=== PATIENT | female | born 1960 | race Caucasian/White ===

== ENCOUNTER 2017-09-20 12:43 | Emergency (ER) | payer OTHER, SELFPAY ==
[2017-09-20] VITALS (8 sets, daily range): BP systolic 76–143; BP diastolic 45–81; PULSE 53–78; RESP 12–18; TEMP 36.8; O2SAT 96–100
--- NOTE | 2017-09-20 13:32 | DI.RAD.S_ITS ---
PROCEDURE: XR CHEST 1V INDICATIONS: chest pain TECHNIQUE: One view of the chest was acquired. COMPARISON: [facility], , CHEST 2 VIEW, 01/03/2007, 15:42. FINDINGS: Surgical changes and devices: None. Lungs and pleura: No pleural effusions or pneumothorax. Lungs are clear. Mediastinum: Mediastinal contours appear normal. Heart size is normal. Bones and chest wall: No suspicious bony lesions. Overlying soft tissues appear unremarkable. IMPRESSION: No acute pulmonary process. Dictated by: Kinsey Gallagher M.D. on 09/20/2017 at 13:56 Approved by: Kinsey Gallagher M.D. on 09/20/2017 at 13:56
--- NOTE | 2017-09-20 13:35 | ED_ITS ---
HPI - Chest Pain General Chief Complaint: Chest Pain Stated Complaint: INDIGESTION, TIGHTNESS IN CHEST Time Seen by Provider: 09/20/17 13:13 Source: patient Mode of arrival: ambulatory Limitations: no limitations History of Present Illness HPI narrative: Patient is a 57-year-old female who presents with chest tightness ongoing for the number of weeks. It goes from her neck down to her epigastric area. It has been constant in nature she sometimes has difficulty swallowing, can't really tell if it is a difference between solids and liquids. She sometimes gets short of breath. She says she is becoming increasing fatigued but due to the pain. The pain is just persisted and would just like it checked out. complaint: chest pain Onset (ago): week(s) Duration: constant Pain location: substernal and epigastric Severity: moderate Quality: tightness Related Data Home Medications Medication Instructions Recorded Confirmed naproxen 500 mg NG PRN #0 12/13/10 09/20/17 rizatriptan [Maxalt] 1 tab PO PRN #0 12/13/10 09/20/17 Allergies Allergy/AdvReac Type Severity Reaction Status Date / Time Amoxicillin Allergy Unknown Uncoded 09/20/17 13:11 Penicillin Allergy Unknown Uncoded 09/20/17 13:11 Tetracycline Allergy Unknown RASH Uncoded 09/20/17 13:11 Review of Systems Review of Systems GENERAL: Denies chills, fatigue, malaise, fever, sweats, travel HEENT: Denies sinus pain, ear pain, sore throat, difficulty swallowing, neck pain RESPIRATORY: Denies dyspnea, cough, wheezing, hemoptysis, sputum. CARDIOVASCULAR: See HPI GASTROINTESTINAL: Denies nausea, vomiting, abdominal pain, diarrhea, constipation, melena. : Denies dysuria, frequency, incontinence, hematuria, urinary retention, flank pain. MUSCULOSKELETAL: Denies weakness, joint pain, or bony pain SKIN: No rash, no erythema, no pruritus NEUROLOGIC: Denies weakness, dizziness, headache, numbness, change in speech, confusion PSYCHIATRIC: No concerning psychosocial issues. 12 point review of systems is negative except for those stated above and HPI All systems reviewed & are unremarkable except as noted in HPI and below PFSH Medical History Migraine (Acute) Social History Smoking Status: Never smoker alcohol intake: never substance use type: does not use Comment: No family history of acute coronary syndrome Exam Initial Vital Signs Initial Vital Signs: Vital Signs Temperature 98.2 F 09/20/17 13:06 Pulse Rate 78 09/20/17 13:06 Respiratory Rate 18 09/20/17 13:06 Blood Pressure 143/81 H 09/20/17 13:06 Pulse Oximetry 100 09/20/17 13:06 GENERAL: Well-appearing, well-nourished and in no acute distress. HEENT: Head atraumatic,EOMI, pupils reactive, CARDIOVASCULAR: Regular rate and rhythm without murmurs, rubs or gallops. RESPIRATORY: Breath sounds equal bilaterally, no wheezes rales or rhonchi. ABDOMEN: Soft, nontender. Normoactive bowel sounds all 4 quadrants. No guarding or rebound. EXTREMITIES: Normal range of motion, no clubbing or edema. Neurovascularly intact NEUROLOGICAL: Alert and oriented x4.Normal gait and speech. Cranial nerves II through XII grossly intact. SKIN: Warm, dry, no laceration, no petechiae, no rashes or lesions. Scores HEART Score Heart Score history: Slightly Suspicious Heart Score EKG: Normal Heart Score Age: 45-64 years old Heart Score risk factors: No known risk factors Heart Score troponin: < or = to normal limit Heart Score Total: 1 PERC Score Age greater than or equal to 50 years: Yes Heart rate greater than or equal to 100 bpm: No Room Air O2 Sat less than 95%: No Unilateral leg swelling: No Recent trauma or surgery: No Hemoptysis: No Prior PE or DVT: No Hormone Use: No Total PERC Score: 1 Course Orders Ordered: ED Orders 09/20/17 12:54 EKG-12 Lead Stat 09/20/17 13:10 Complete Blood Count AUTO DIFF Stat Comprehensive Metabolic Panel Stat D Dimer Stat Lipase Stat Troponin with CK Cardiac Panel Stat 09/20/17 13:32 XR chest 1V Stat Discontinued Medications Aspirin (Aspirin Chew) 324 mg PO NOW ONE Stop: 09/20/17 13:33 Last Admin: 09/20/17 13:52 Dose: 324 mg Al Hydrox/Mg Hydrox/Simethicone 20 ml/ Lidocaine HCl 15 ml 0 ml PO NOW ONE Stop: 09/20/17 15:07 Last Admin: 09/20/17 15:26 Dose: 35 ml Sodium Chloride (Normal Saline 0.9%) 1,000 mls @ 1,000 mls/hr IV BOLUS ONE Stop: 09/20/17 15:00 Last Admin: 09/20/17 14:24 Dose: 1,000 mls/hr Nitroglycerin (Nitrostat) 0.4 mg SL NOW ONE Stop: 09/20/17 13:33 Last Admin: 09/20/17 13:51 Dose: 0.4 mg Pantoprazole Sodium (Protonix) 40 mg IV NOW ONE Stop: 09/20/17 13:33 Last Admin: 09/20/17 13:53 Dose: 40 mg Vital Signs - 8 hr 09/20/17 13:06 09/20/17 13:51 09/20/17 14:05 Temperature 98.2 F Pulse Rate 78 65 53 L Respiratory Rate 18 Blood Pressure 143/81 H 125/79 H 76/45 L Blood Pressure [Right Arm] Pulse Oximetry 100 09/20/17 14:24 09/20/17 15:40 09/20/17 15:56 Temperature Pulse Rate 61 65 62 Respiratory Rate 13 14 12 Blood Pressure Blood Pressure [Right Arm] 106/65 100/70 103/72 Pulse Oximetry 100 98 100 09/20/17 16:54 09/20/17 16:56 Temperature Pulse Rate 68 70 Respiratory Rate 13 15 Blood Pressure 112/66 Blood Pressure [Right Arm] 112/66 Pulse Oximetry 100 96 MDM - Chest Pain Lab Data Result diagrams: 09/20/17 13:10 09/20/17 13:10 Lab Results 09/20/17 09/20/17 09/20/17 Range/Units 13:10 13:10 13:10 WBC 6.8 (4.5-11.0) X10^3/uL RBC 4.53 (4.0-5.2) X10^6/uL Hgb 13.7 (12.0-16.0) g/dL Hct 39.7 (36-46) % MCV 87.6 (80-100) fL MCH 30.2 (26-34) PG MCHC 34.5 (30-36) % RDW 12.5 (11.6-14.8) % Plt Count 257 (150-400) X10^3/uL Neut % (Auto) 80.5 H (50-75) % Lymph % (Auto) 15.0 L (25-40) % [place] % (Auto) 4.0 (3-14) % Eos % (Auto) 0.1 L (2-4) % Baso % (Auto) 0.4 (0-2) % Neut # (Auto) 5500 (0397-4056) /uL D-Dimer < 200 (<230) ng/mL Sodium 141 (137-145) mmol/L Potassium 4.3 (3.4-5.1) mmol/L Chloride 104 (98-107) mmol/L Carbon Dioxide 26 (22-32) mmol/L BUN 14 (7-17) mg/dL Creatinine 0.60 (0.52-1.04) mg/dL Estimated GFR > 60.0 (>60) mL/min BUN/Creatinine Ratio 23.3 H (6-22) Glucose 121 H (70-100) mg/dL Calcium 9.9 (8.4-10.2) mg/dL Total Bilirubin 0.8 (0.2-1.3) mg/dL AST 25 (14-36) IU/L ALT 22 (9-52) IU/L Alkaline Phosphatase 87 (38-126) U/L Total Creatine Kinase 47 (30-135) U/L Troponin I < 0.012 (0.01-0.034) ng/mL Total Protein 7.9 (6.3-8.2) g/dL Albumin 4.5 (3.5-5.0) g/dL Globulin 3.4 (1.7-4.1) g/dL Albumin/Globulin Ratio 1.3 (1.0-2.8) Lipase 120 (23-300) U/L Imaging Data Chest x-ray: Radiologist's impression: PROCEDURE: XR CHEST 1V INDICATIONS: chest pain TECHNIQUE: One view of the chest was acquired. COMPARISON: [facility], , CHEST 2 VIEW, 01/03/2007, 15:42. FINDINGS: Surgical changes and devices: None. Lungs and pleura: No pleural effusions or pneumothorax. Lungs are clear. Mediastinum: Mediastinal contours appear normal. Heart size is normal. Bones and chest wall: No suspicious bony lesions. Overlying soft tissues appear unremarkable. IMPRESSION: No acute pulmonary process. Dictated by: Kinsey Gallagher M.D. on 09/20/2017 at 13:56 ECG Data Attestation: I personally reviewed and interpreted this ECG as follows: Prior ECG tracings: not available for review Interpretation: Normal sinus rhythm rate [address] changes, no t wave inversions no priors to compare MDM Narrative Medical decision making narrative: Patient is pressure dropped significantly with nitroglycerin her her rate also dropped. It responded well to IV fluids it did take away her chest pain. Her chest tightness started to come back after the nitro. She was given a GI cocktail. She has had ongoing chest and neck discomfort for about a week troponin and EKG are negative. I did recommend further outpatient workup and to return to the ED if anything worsens. Low perc score and negative D-dimer I do not believe this to be a PE. She may also require an EGD if cardiac workup is negative. Discharge Plan Departure Patient Disposition: Home, Self-Care Clinical Impression: Atypical chest pain Discharge Date/Time: 09/20/17 16:58 Interventions: ED Discharge Assessment Last Done: 09/20/17 16:56 Instructions: DI for Atypical Chest Pain Activity Restrictions/Additional Instructions: *You have been diagnosed with atypical chest pain *What to do: You should still see her primary doctor in regards to further cardiac testing, such as a stress test *Continue to take medications as directed *Follow up with your primary care provider in 2-3 days *Return to ER if you should have change or worsening chest pain or any new, worsening or concerning symptoms Prescriptions: No Action rizatriptan [Maxalt] 10 mg Tablet 1 tab PO PRN Qty: 0 RF: 0 naproxen 500 mg Tablet,Delayed Release (Dr/Ec) 500 mg NG PRN Qty: 0 RF: 0
[2017-09-20 13:42] LABS: Add Manual Diff / Slide Review NO; Basophils Percent Auto 0.4 % (0-2); Eosinophils Percent Auto 0.1 % (2-4); Hematocrit 39.7 % (36-46); Hemoglobin 13.7 g/dL (12.0-16.0); Mean Corpuscular HGB Conc 34.5 % (30-36); Mean Corpuscular Hemoglobin 30.2 PG (26-34); Mean Corpuscular Volume 87.6 fL (80-100); Neutrophils Absolute Auto 5500 /uL (3000-5900); Neutrophils Percent Auto 80.5 % (50-75); Platelet Count 257 X10^3/uL (150-400); Red Blood Cell Count 4.53 X10^6/uL (4.0-5.2); Red Cell Distribution Width 12.5 % (11.6-14.8); White Blood Cell Count 6.8 X10^3/uL (4.5-11.0)
[2017-09-20 13:47] LABS: Alanine Aminotransferase 22 IU/L (9-52); Albumin 4.5 g/dL (3.5-5.0); Albumin Globulin Ratio 1.3 (1.0-2.8); Alkaline Phosphatase 87 U/L (38-126); Aspartate Aminotransferase 25 IU/L (14-36); BUN Creatinine Ratio 23.3 (6-22); Bilirubin Total 0.8 mg/dL (0.2-1.3); Blood Urea Nitrogen 14 mg/dL (7-17); Calcium 9.9 mg/dL (8.4-10.2); Carbon Dioxide 26 mmol/L (22-32); Chloride 104 mmol/L (98-107); Creatine Kinase 47 U/L (30-135); D Dimer < 200 ng/mL (<230); Estimated Glomerular Filt Rate > 60.0 mL/min (>60); Globulin 3.4 g/dL (1.7-4.1); Glucose 121 mg/dL (70-100); HEMOLYSIS < 15 (0-50); Lipase 120 U/L (23-300); Potassium 4.3 mmol/L (3.4-5.1); Sodium 141 mmol/L (137-145); Total Protein 7.9 g/dL (6.3-8.2)
[2017-09-20] MEDS: NITROGLYCERIN 0.4 MG SL TAB SL (13:51)
[2017-09-20] MEDS: ASPIRIN 81 MG TAB 324 MG PO (13:52)
[2017-09-20] MEDS: PANTOPRAZOLE 40 MG VIAL IV (13:53)
[2017-09-20 14:00] LABS: Troponin I < 0.012 ng/mL (0.01-0.034)
[2017-09-20] MEDS: SODIUM CHLORIDE 0.9% 1,000 ML 1000 ML IV (14:24)
[2017-09-20] MEDS: MAG HYDROX/ALUMINUM/SIMETH SUS 20 ML, LIDOCAINE VISCOUS 2% 15 ML PO (15:26)
== END 2017-09-20 16:58 | disposition home or self-care (01) ==
PROVIDERS: Emergency Provider Emergency Medicine; Family Provider Family Medicine; PCP Family Medicine
DX: R07.89 Other chest pain (principal)
CPT/HCPCS: 36591; 71045; 80053; 82550; 82553; 83690; 84484; 85025; 85379; 93005; 96361; 96374; 99283; 99285; C9113

== ENCOUNTER 2017-10-25 06:46 | Day surgery (SDC) | payer OTHER, SELFPAY ==
--- NOTE | 2017-10-25 | PATH_ITS ---
[facility] Accession Number: [id number] . 01 Material submitted: . BIOPSY EG JUNCTION . 02 Diagnosis: Gastroesophageal Junction, Biopsy: Squamocolumnar junctional mucosa with no diagnostic abnormality. Negative for specialized intestinal metaplasia, dysplasia or malignancy. MRV/10/28/2017 . 02 Electronically signed: . Javed Romero MD, PhD, Pathologist NPI- [id number] . 01 Gross description: . Received in one formalin-filled container labeled with the patient's name and labeled EG junction, are 0.1-0.2 cm portions of tissue, entirely submitted in cassette A. ([id number]) /FRR . 02 Pathologist provided ICD-10: K21.9, R10.13 . 02 CPT . 237836 Performed at: 01 [facility] [address] [id number] MD Chay Lay MD Phone: [phone] Performed at: 02 [facility] [id number] [place] [id number] MD Isrrael Scales MD Phone: [phone]
[2017-10-25 07:11] VITALS: BP 110/59; PULSE 62; RESP 15; TEMP 36; O2SAT 98; BMI 24.2
[2017-10-25] MEDS: SODIUM CHLORIDE 0.9% 1,000 ML 200 ML IV (07:20)
--- NOTE | 2017-10-25 08:08 | PM.PREOP ---
Pre-operative Note Interval Note Pre-op Check: Yes History & Physical Reviewed by Physician and Yes Exam Performed Changes: No ASA Class (for procedural sedation): I
[2017-10-25] MEDS: TETRACAINE/BENZOCAINE/BUTAMBEN (CETACAINE) BOTTLE 1 SPRAY TOP (08:35)
[2017-10-25] MEDS: MIDAZOLAM 5 MG/5 ML VIAL IV (08:37)
[2017-10-25] MEDS: fentaNYL 250 MCG/5 ML INJ IV (08:38)
--- NOTE | 2017-10-25 08:38 | PM.OP.ENDO ---
Operative Date/Time/Diagnoses Date of procedure: 10/25/17 Time of procedure: 08:38 Post-op diagnosis: same Procedure & Clinicians Study performed: EGD with cold biopsy Same procedure as scheduled: Yes Indications: Reflux. Atypical chest pain. Surgeon: Mg Cho Procedure Notes SCOAP/Timeout: Performed Procedure in detail: The patient had topical anesthetic applied to oropharynx. She was placed in left lateral decubitus position and underwent IV sedation directed by the surgeon consisting of fentanyl and Versed. A bite block was inserted and the scope was advanced through it into the esophagus. The cord structures and surrounding tissue were noted to be normal. The esophagus was unremarkable. GE junction was noted at 38 cm from the incisors. There was no evidence of a hiatal hernia. The stomach insufflated well. There were no lesions seen in the body, antrum or at the incisura. The pyloric channel was not inflamed and normally patent. The duodenum was unremarkable to the 4th part. The scope was brought back into the stomach and retroflexed. The proximal stomach was unremarkable. There was no evidence of a hiatal hernia from below.. The scope was straightened and brought out to the GE junction where I performed biopsies to clarify whether there was a subclinical problem. The scope was then brought out through the esophagus. No lesions were seen. I once again examined the cord structures which were normal in appearance, and appeared to be normally mobile. The scope was removed and the patient tolerated the procedure well. Scope withdrawal time: Not applicable Sedation minutes: 9 Findings: other findings (Normal examination) Specimen(s): other (GE junction) Complications: none Plan for aftercare: Follow-up with your primary care physician Follow up: as needed Disposition: PACU
[2017-10-25 08:43] VITALS: BP 125/82; PULSE 66; RESP 16; TEMP 36.4; O2SAT 91; O2SAT 95
[2017-10-25 08:47] VITALS: BP 114/78; PULSE 61; O2SAT 95
[2017-10-25 08:52] VITALS: BP 120/75; PULSE 59; O2SAT 97
[2017-10-25 08:57] VITALS: O2SAT 96
[2017-10-25 09:10] VITALS: BP 128/78; PULSE 64; RESP 14; TEMP 36.1; O2SAT 97
== END 2017-10-25 09:19 | disposition home or self-care (01) ==
PROVIDERS: Family Provider Family Medicine; PCP Family Medicine; Visit Provider Specialist
PROC: 0DJ08ZZ Inspection of Upper Intestinal Tract, Via Natural or Artificial Opening Endoscopic (ICD-10-PCS; CPT 43235; principal; 2017-10-25 07:45)
DX: K21.9 Gastro-esophageal reflux disease without esophagitis (principal); R13.10 Dysphagia, unspecified; R07.89 Other chest pain
CPT/HCPCS: 43239; 99152; J2250; J3010

== ENCOUNTER → 2017-10-30 11:07 | Outpatient (CLI) | payer OTHER, SELFPAY ==
--- NOTE | 2017-10-30 | DI.MG.S_ITS ---
BILATERAL DIGITAL SCREENING MAMMOGRAM 3D/2D WITH CAD: 10/30/2017 CLINICAL: Routine screening. Family history of breast cancer. Comparison is made to exams dated: 09/27/2016 mammogram, 04/29/2015 mammogram, and 04/25/2015 mammogram - [facility]. The tissue of both breasts is heterogeneously dense. This may lower the sensitivity of mammography. Current study was also evaluated with a Computer Aided Detection (CAD) system. No significant masses, calcifications, or other findings are seen in either breast. There has been no significant interval change. IMPRESSION: NEGATIVE There is no mammographic evidence of malignancy. A 1 year screening mammogram is recommended. This exam was interpreted at Station ID: [id number]. NOTE: For mammograms, a report in lay terms will be sent to the patient. Approximately 15% of breast malignancies will not be visualized mammographically. In the management of a palpable breast mass, a negative mammogram must not discourage biopsy of a clinically suspicious lesion. Electronically Signed By: Lainey gomez/raoul:10/30/2017 11:53:31 letter sent: Normal Exam ACR BI-RADS Category 1: Negative 3341F
== END ==
PROVIDERS: Family Provider Family Medicine; PCP Family Medicine; Visit Provider Family Medicine
DX: Z12.31 Encounter for screening mammogram for malignant neoplasm of breast (principal); Z80.3 Family history of malignant neoplasm of breast
CPT/HCPCS: 77063; 77067

== ENCOUNTER → 2018-11-06 09:46 | Outpatient (CLI) | payer OTHER, SELFPAY ==
--- NOTE | 2018-11-06 | DI.MG.S_ITS ---
BILATERAL DIGITAL SCREENING MAMMOGRAM 3D/2D WITH CAD: 11/06/2018 CLINICAL: Routine screening. Family history of breast cancer. Comparison is made to exams dated: 10/30/2017 mammogram, 09/27/2016 mammogram, and 04/29/2015 mammogram - [facility]. The tissue of both breasts is heterogeneously dense. This may lower the sensitivity of mammography. Current study was also evaluated with a Computer Aided Detection (CAD) system. No significant masses, calcifications, or other findings are seen in either breast. There has been no significant interval change. IMPRESSION: NEGATIVE There is no mammographic evidence of malignancy. A 1 year screening mammogram is recommended. This exam was interpreted at Station ID: [id number]. NOTE: For mammograms, a report in lay terms will be sent to the patient. Approximately 15% of breast malignancies will not be visualized mammographically. In the management of a palpable breast mass, a negative mammogram must not discourage biopsy of a clinically suspicious lesion. Electronically Signed By: Vaughn cisse/raoul:11/06/2018 10:32:24 letter sent: Normal Exam ACR BI-RADS Category 1: Negative [id number]
== END ==
PROVIDERS: PCP Family Medicine; Visit Provider Family Medicine
DX: Z12.31 Encounter for screening mammogram for malignant neoplasm of breast (principal); Z80.3 Family history of malignant neoplasm of breast
CPT/HCPCS: 77063; 77067

== ENCOUNTER 2019-08-24 15:58 | Emergency (ER) | payer OTHER, SELFPAY ==
[2019-08-24 16:09] VITALS: BP 156/89; PULSE 62; RESP 16; TEMP 36; O2SAT 99
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
--- NOTE | 2019-08-24 16:18 | PC.NURSE ---
placed patient in sling for comfort in triage. Ice pack in place
[2019-08-24 17:14] VITALS: PULSE 88
--- NOTE | 2019-08-24 17:15 | PC.NURSE ---
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
[2019-08-24] MEDS: ONDANSETRON 4 MG ODT PO (17:20)
[2019-08-24] MEDS: HYDROCODONE/ACET 5/325 TABLET 2 TAB PO (17:20)
[2019-08-24 18:12] VITALS: BP 129/71; PULSE 78; RESP 16; O2SAT 99
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
== END 2019-08-24 18:24 | disposition home or self-care (01) ==
PROVIDERS: Emergency Provider Emergency Medicine; PCP Family Medicine
DX: S42.021A Displaced fracture of shaft of right clavicle, initial encounter for closed fracture (principal); W19.XXXA Unspecified fall, initial encounter
CPT/HCPCS: 73000; 73030; 99283; 99284

== ENCOUNTER → 2019-08-26 10:35 | Outpatient (CLI) | payer OTHER, SELFPAY ==
[2019-08-26 12:31] LABS: Add Manual Diff / Slide Review NO; Basophils Absolute Auto 0 /uL (0-100); Basophils Percent Auto 0.4 % (0-2); Eosinophils Absolute Auto 0 /uL (0-450); Eosinophils Percent Auto 0.6 % (2-4); Hematocrit 36.6 % (36-46); Hemoglobin 12.4 g/dL (12.0-16.0); Lymphocytes Absolute Auto 1200 /uL (1100-4500); Lymphocytes Percent Auto 14.9 % (25-40); Mean Corpuscular Hemoglobin 30.3 PG (26-34); Mean Corpuscular Volume 89.2 fL (80-100); Monocytes Absolute Auto 500 /uL (0-900); Monocytes Percent Auto 6.8 % (3-14); Neutrophils Absolute Auto 6100 /uL (1500-7000); Neutrophils Percent Auto 77.3 % (50-75); Platelet Count 228 X10^3/uL (150-400); Red Cell Distribution Width 12.8 % (11.6-14.8); White Blood Cell Count 7.9 X10^3/uL (4.5-11.0)
[2019-08-27 07:43] LABS: COVID19 Sendout Not Detected (Not Detect)
== END ==
PROVIDERS: Registered Nurse; PCP Family Medicine; Referring Provider Orthopaedic Surgery; Visit Provider Orthopaedic Surgery
DX: Z01.812 Encounter for preprocedural laboratory examination (principal)
CPT/HCPCS: 36415; 85025; 87635

== ENCOUNTER → 2019-12-15 14:06 | Outpatient (CLI) | payer OTHER, SELFPAY ==
--- NOTE | 2019-12-15 | DI.CT.S_ITS ---
PROCEDURE: CT UE RT WO CON INDICATIONS: NON DISPLACED right clavicle TECHNIQUE: Noncontrast 1-1.5 mm thick sections acquired from the acromioclavicular joint to the inferior scapula, with coronal and sagittal reformatting. COMPARISON: [facility] [place], CR, XR CLAVICLE RIGHT, 09/07/2019, 8:39. [facility] [place], CR, XR CLAVICLE RIGHT, 12/09/2019, 11:10. FINDINGS: Image quality: Excellent. Bones: Postsurgical changes are seen from fixation a midshaft clavicular fracture with metallic plate and screw construct. Lucency is seen surrounding the medial 3 screws, some of which have partially backed out with separation of the medial metallic plate from the clavicular shaft by up to 4 mm. The fracture line remains lucent without significant osseous bridging. Warrens superior angulation of the fracture is noted.. There is a healing fracture of the lateral margin of the plate with superior displacement of the distal clavicular fragment with partial osseous bridging and mild overgrowth around the lateral plate margin. The included ribs, the scapula, and the proximal humerus are intact. Soft tissues: No significant glenohumeral effusion. No soft tissue mass is seen. The articular cartilages, ligaments, and tendons are not well evaluated with CT. IMPRESSION: Postsurgical changes from fixation open reduction and internal fixation of a mid clavicular shaft fracture with loosening and backing out of the medial screws resulting in separation of the medial metallic plate end from the clavicle by up to 4 mm. The fracture line remains lucent with mild apex superior angulation. An additional healing fracture is seen at the distal clavicular shaft at the lateral plate margin with superior displacement of the lateral fragment and partial osseous bridging. Dictated by: Yoni Juarez M.D. on 12/15/2019 at 14:51 Approved by: Yoni Juarez M.D. on 12/15/2019 at 15:07
== END ==
PROVIDERS: PCP Family Medicine; Referring Provider Orthopaedic Surgery; Visit Provider Orthopaedic Surgery
DX: S42.024D Nondisplaced fracture of shaft of right clavicle, subsequent encounter for fracture with routine healing (principal); X58.XXXD Exposure to other specified factors, subsequent encounter
CPT/HCPCS: 73200

== ENCOUNTER → 2020-06-01 14:08 | Outpatient (CLI) | payer OTHER, SELFPAY ==
[2020-06-01] MEDS: COVID-19 VACC, Ad26(JANSSEN)/PF 0.5 ML IM (14:20)
== END ==
PROVIDERS: PCP Family Medicine; Visit Provider Internal Medicine
DX: Z23 Encounter for immunization (principal)
CPT/HCPCS: 0031A; 91303

== ENCOUNTER → 2020-07-18 16:38 | Outpatient (CLI) | payer OTHER, SELFPAY ==
--- NOTE | 2020-07-18 | DI.CT.S_ITS ---
PROCEDURE: CT KIDNEY URETER BLADDER (KUB) INDICATIONS: LOWER ABD PAIN UNSPECIFIED TECHNIQUE: Noncontrast 5 mm thick sections acquired from the diaphragms to the symphysis. 5 mm thick coronal and sagittal reformats were then performed. For radiation dose reduction, the following was used: automated exposure control, adjustment of mA and/or kV according to patient size. COMPARISON: None. FINDINGS: Image quality: Limited by absence of both oral and intravenous contrast.. Lung bases: Lung bases are clear. Heart size is normal. Urinary system: Both kidneys are normal in size. No kidney stones. No hydronephrosis or perinephric fat stranding. Both ureters appear non-dilated throughout their expected courses. Bladder wall thickness is normal; no calcified bladder stones. Other solid organs: Liver is normal in size. Gallbladder is contracted . Pancreas is normal in contours. Spleen is normal in size. No adrenal nodules. Peritoneum and bowel: Unenhanced bowel loops demonstrate normal wall thickness and caliber. No free fluid or air. Nodes and vessels: No retroperitoneal or mesenteric adenopathy by size criteria. Aorta and inferior vena cava are normal in caliber. Abdominal wall: No ventral hernias. Pelvis: No free pelvic fluid. No inguinal hernias or adenopathy. Scattered pelvic phleboliths, no definite distal ureteral stone. Bones: No suspicious bony lesions. No vertebral body compression fractures. IMPRESSION: The absence of both oral and intravenous contrast does reduce ability of this study to detect solid or hollow organ abnormality. A urinary tract stone is not seen. There are several scattered pelvic phleboliths over the lower pelvis. Source of current reported lower abdominal pain is not identified. Dictated by: Reagan Quarles M.D. on 07/19/2020 at 12:39 Approved by: Reagan Quarles M.D. on 07/19/2020 at 12:42
== END ==
PROVIDERS: PCP Family Medicine; Referring Provider Nurse Practitioner Family; Visit Provider Nurse Practitioner Family
DX: R10.30 Lower abdominal pain, unspecified (principal)
CPT/HCPCS: 74176

== ENCOUNTER → 2020-08-10 14:35 | Outpatient (CLI) | payer OTHER, SELFPAY ==
--- NOTE | 2020-08-10 | DI.US.S_ITS ---
PROCEDURE: US PELVIC COMPLETE INDICATIONS: PELVIC AND PERINEAL PAIN TECHNIQUE: Real-time scanning was performed of the pelvic organs, with image documentation. Additional endovaginal scanning was necessary due to incomplete visualization of the adnexal and endometrial structures by transabdominal scanning. COMPARISON: [facility], CT, CT KIDNEY URETER BLADDER (KUB), 07/18/2020, 17:05. [facility], US, PELVIC COMPLETE, 12/01/2007, 15:56. FINDINGS: Uterus: Uterus is normal in size at 5.1 x 4.1 x 2.1 cm. The endometrium measures 2 mm in combined thickness. Ovaries: The right ovary measures 1.9 x 1.4 x 1.2 cm and demonstrates an unremarkable sonographic appearance. The left ovary is not seen. No adnexal masses are seen on either side. Other: No pathologic free abdominal or pelvic fluid. The prevoid bladder volume is 416 cc. The postvoid bladder volume is 0 cc. IMPRESSION: Unremarkable pelvic ultrasound. Left ovary not seen. No postvoid residual. Dictated by: Poncho Puentes M.D. on 08/11/2020 at 10:05 Approved by: Poncho Puentes M.D. on 08/11/2020 at 10:17
== END ==
PROVIDERS: PCP Family Medicine; Referring Provider Family Medicine; Visit Provider Family Medicine
DX: R10.2 Pelvic and perineal pain (principal); M81.0 Age-related osteoporosis without current pathological fracture; Z78.0 Asymptomatic menopausal state; Z82.62 Family history of osteoporosis
CPT/HCPCS: 76830; 76856; 77080

== ENCOUNTER → 2020-11-08 10:10 | Outpatient (CLI) | payer OTHER, SELFPAY ==
--- NOTE | 2020-11-08 | DI.MG.S_ITS ---
BILATERAL DIGITAL SCREENING MAMMOGRAM 3D/2D WITH CAD: 11/08/2020 CLINICAL: Routine screening. Family history of breast cancer. Comparison is made to exams dated: 11/06/2018 mammogram, 10/30/2017 mammogram, 09/27/2016 mammogram, and 04/25/2015 mammogram - [facility]. The tissue of both breasts is heterogeneously dense. This may lower the sensitivity of mammography. Current study was also evaluated with a Computer Aided Detection (CAD) system. No significant masses, calcifications, or other findings are seen in either breast. There has been no significant interval change. IMPRESSION: NEGATIVE There is no mammographic evidence of malignancy. A 1 year screening mammogram is recommended. This exam was interpreted at Station ID: [id number]. NOTE: For mammograms, a report in lay terms will be sent to the patient. Approximately 15% of breast malignancies will not be visualized mammographically. In the management of a palpable breast mass, a negative mammogram must not discourage biopsy of a clinically suspicious lesion. Electronically Signed By: Angelito mcnair/raoul:11/08/2020 10:48:46 letter sent: Normal Exam ACR BI-RADS Category 1: Negative [id number]
== END ==
PROVIDERS: PCP Family Medicine; Referring Provider Family Medicine; Visit Provider Family Medicine
DX: Z12.31 Encounter for screening mammogram for malignant neoplasm of breast (principal); Z80.3 Family history of malignant neoplasm of breast
CPT/HCPCS: 77063; 77067

== ENCOUNTER → 2021-12-23 09:14 | Outpatient (CLI) | payer OTHER, SELFPAY ==
[2021-12-23 10:10] LABS: Add Manual Diff / Slide Review NO; Basophils Absolute Auto 0 /uL (0-100); Basophils Percent Auto 0.8 % (0-2); Eosinophils Absolute Auto 100 /uL (0-450); Eosinophils Percent Auto 2.3 % (2-4); Hematocrit 37.5 % (36-46); Hemoglobin 12.7 g/dL (12.0-16.0); Lymphocytes Absolute Auto 1500 /uL (1100-4500); Lymphocytes Percent Auto 29.9 % (25-40); Mean Corpuscular HGB Conc 33.8 % (30-36); Mean Corpuscular Hemoglobin 29.9 PG (26-34); Mean Corpuscular Volume 88.5 fL (80-100); Monocytes Absolute Auto 400 /uL (0-900); Monocytes Percent Auto 8.8 % (3-14); Neutrophils Absolute Auto 3000 /uL (1500-7000); Neutrophils Percent Auto 58.2 % (50-75); Platelet Count 244 X10^3/uL (150-400); Red Blood Cell Count 4.24 X10^6/uL (4.0-5.2); Red Cell Distribution Width 12.4 % (11.6-14.8); White Blood Cell Count 5.1 X10^3/uL (4.5-11.0)
[2021-12-23 10:38] LABS: Alanine Aminotransferase 18 IU/L (<35); Albumin 4.4 g/dL (3.5-5.0); Albumin Globulin Ratio 1.3 (1.0-2.8); Alkaline Phosphatase 48 U/L (38-126); Aspartate Aminotransferase 28 IU/L (14-36); BUN Creatinine Ratio 24.7 (6-22); Bilirubin Total 0.6 mg/dL (0.2-1.3); Blood Urea Nitrogen 18 mg/dL (7-17); Carbon Dioxide 30 mmol/L (22-32); Chloride 104 mmol/L (98-107); Cholesterol 249 mg/dL (140-199); Estimated Glomerular Filt Rate > 60 mL/min (>60); Globulin 3.5 g/dL (1.7-4.1); Glucose 108 mg/dL (80-110); HDL Cholesterol 73 mg/dL (40-60); HEMOLYSIS < 15 (0-50); LDL Cholesterol Calculated 149 mg/dL (<100); Potassium 4.5 mmol/L (3.4-5.1); Sodium 140 mmol/L (137-145); Total Protein 7.9 g/dL (6.3-8.2); Triglycerides 136 mg/dL (35-150)
[2021-12-25 18:29] LABS: Hep C Virus Ab w/Reflex Quant NEGATIVE s/c (NEGATIVE)
== END ==
PROVIDERS: PCP Family Medicine; Referring Provider Family Medicine; Visit Provider Family Medicine
DX: Z00.00 Encounter for general adult medical examination without abnormal findings (principal); Z78.9 Other specified health status
CPT/HCPCS: 36415; 80053; 80061; 84443; 85025; 86803

== ENCOUNTER → 2022-01-16 14:39 | Outpatient (CLI) | payer OTHER, SELFPAY ==
--- NOTE | 2022-01-16 14:40 | DI.MG.S_ITS ---
BILATERAL DIGITAL SCREENING MAMMOGRAM 3D/2D WITH CAD: 01/16/2022 CLINICAL: Routine screening. Family history of breast cancer. Comparison is made to exams dated: 11/08/2020 mammogram, 11/06/2018 mammogram, and 10/30/2017 mammogram - [facility]. Both breasts are heterogeneously dense, which may obscure small masses (category c / 51-75% glandular tissue). Current study was also evaluated with a Computer Aided Detection (CAD) system. No significant masses, calcifications, or other findings are seen in either breast. There has been no significant interval change. IMPRESSION: NEGATIVE There is no mammographic evidence of malignancy. A 1 year screening mammogram is recommended. This exam was interpreted at Station ID: [id number]. NOTE: For mammograms, a report in lay terms will be sent to the patient. Approximately 15% of breast malignancies will not be visualized mammographically. In the management of a palpable breast mass, a negative mammogram must not discourage biopsy of a clinically suspicious lesion. Electronically Signed By: Tone christensen/raoul:01/16/2022 15:43:26 letter sent: Normal Exam ACR BI-RADS Category 1: Negative [id number]
== END ==
PROVIDERS: PCP Family Medicine; Referring Provider Family Medicine; Visit Provider Family Medicine
DX: Z13.820 Encounter for screening for osteoporosis (principal); Z12.31 Encounter for screening mammogram for malignant neoplasm of breast; M81.0 Age-related osteoporosis without current pathological fracture; Z80.3 Family history of malignant neoplasm of breast; Z78.0 Asymptomatic menopausal state; Z79.890 Hormone replacement therapy
CPT/HCPCS: 77063; 77067; 77080

== ENCOUNTER → 2022-06-16 07:54 | Outpatient (CLI) | payer OTHER, SELFPAY ==
[2022-06-16 09:12] LABS: Alanine Aminotransferase 25 IU/L (<35); Albumin 4.2 g/dL (3.5-5.0); Albumin Globulin Ratio 1.4 (1.0-2.8); Alkaline Phosphatase 53 U/L (38-126); Aspartate Aminotransferase 32 IU/L (14-36); Bilirubin Total 0.7 mg/dL (0.2-1.3); Blood Urea Nitrogen 15 mg/dL (7-17); Calcium 9.2 mg/dL (8.4-10.2); Carbon Dioxide 31 mmol/L (22-32); Chloride 101 mmol/L (98-107); Cholesterol 224 mg/dL (140-199); Estimated Glomerular Filt Rate > 60 mL/min (>60); Globulin 2.9 g/dL (1.7-4.1); Glucose 105 mg/dL (80-110); HDL Cholesterol 83 mg/dL (40-60); HEMOLYSIS < 15 (0-50); LDL Cholesterol Calculated 127 mg/dL (<100); Potassium 4.6 mmol/L (3.4-5.1); Sodium 138 mmol/L (137-145); Total Protein 7.1 g/dL (6.3-8.2); Triglycerides 71 mg/dL (35-150)
== END ==
PROVIDERS: PCP Family Medicine; Referring Provider Family Medicine; Visit Provider Family Medicine
DX: E78.5 Hyperlipidemia, unspecified (principal)
CPT/HCPCS: 36415; 80053; 80061

== ENCOUNTER → 2022-06-21 16:08 | Outpatient (CLI) | payer OTHER, SELFPAY ==
[2022-06-21 16:52] LABS: Add Manual Diff / Slide Review NO; Basophils Absolute Auto 100 /uL (0-100); Basophils Percent Auto 0.9 % (0-2); Eosinophils Absolute Auto 100 /uL (0-450); Hematocrit 34.4 % (36-46); Hemoglobin 11.7 g/dL (12.0-16.0); Lymphocytes Absolute Auto 1700 /uL (1100-4500); Lymphocytes Percent Auto 29.9 % (25-40); Mean Corpuscular HGB Conc 34.1 % (30-36); Mean Corpuscular Hemoglobin 29.9 PG (26-34); Mean Corpuscular Volume 87.6 fL (80-100); Monocytes Absolute Auto 600 /uL (0-900); Monocytes Percent Auto 10.1 % (3-14); Neutrophils Absolute Auto 3300 /uL (1500-7000); Neutrophils Percent Auto 57.1 % (50-75); Platelet Count 242 X10^3/uL (150-400); Red Blood Cell Count 3.92 X10^6/uL (4.0-5.2); Red Cell Distribution Width 12.8 % (11.6-14.8); White Blood Cell Count 5.8 X10^3/uL (4.5-11.0)
[2022-06-21 17:16] LABS: Erythrocyte Sedimentation Rate 16 MM/HR (0-20)
[2022-06-21 17:42] LABS: C-Reactive Protein Quant 0.6 mg/dL (<1.0)
[2022-06-21 17:51] LABS: Rheumatoid Factor < 8.6 IU/mL (<12.0)
[2022-06-21 18:03] LABS: TSH w/ Reflex to FT4 0.53 uIU/mL (0.47-4.68)
[2022-06-23 08:10] LABS: Parathyroid Hormone Int 37 pg/mL (15-65)
[2022-06-26 18:07] LABS: ANA Screen, IFA Negative (.)
== END ==
PROVIDERS: PCP Family Medicine; Referring Provider Family Medicine; Visit Provider Family Medicine
DX: M25.50 Pain in unspecified joint (principal)
CPT/HCPCS: 36415; 82306; 83970; 84443; 85025; 85651; 86038; 86140; 86430

== ENCOUNTER → 2022-07-21 09:39 | Outpatient (CLI) | payer OTHER, SELFPAY ==
[2022-07-21 10:55] LABS: Add Manual Diff / Slide Review NO; Basophils Absolute Auto 0 /uL (0-100); Basophils Percent Auto 0.5 % (0-2); Eosinophils Absolute Auto 100 /uL (0-450); Eosinophils Percent Auto 1.6 % (2-4); Hematocrit 36.4 % (36-46); Hemoglobin 12.3 g/dL (12.0-16.0); Lymphocytes Absolute Auto 1500 /uL (1100-4500); Lymphocytes Percent Auto 20.7 % (25-40); Mean Corpuscular HGB Conc 33.8 % (30-36); Mean Corpuscular Hemoglobin 29.9 PG (26-34); Mean Corpuscular Volume 88.3 fL (80-100); Monocytes Absolute Auto 600 /uL (0-900); Neutrophils Absolute Auto 4900 /uL (1500-7000); Neutrophils Percent Auto 68.2 % (50-75); Platelet Count 242 X10^3/uL (150-400); Red Blood Cell Count 4.12 X10^6/uL (4.0-5.2); Red Cell Distribution Width 12.5 % (11.6-14.8); White Blood Cell Count 7.1 X10^3/uL (4.5-11.0)
[2022-07-21 10:56] LABS: Iron 99 ug/dL (37-170)
[2022-07-21 11:06] LABS: Total Iron Binding Capacity 279 ug/dL (265-497)
[2022-07-21 11:32] LABS: Ferritin 84 ng/mL (11-264)
[2022-07-21 12:03] LABS: Vitamin B12 647 pg/mL (239-931)
== END ==
PROVIDERS: PCP Family Medicine; Referring Provider Family Medicine; Visit Provider Family Medicine
DX: D64.9 Anemia, unspecified (principal)
CPT/HCPCS: 36415; 82607; 82728; 82746; 83540; 83550; 85025

== ENCOUNTER → 2023-01-19 09:11 | Outpatient (CLI) | payer OTHER, SELFPAY ==
--- NOTE | 2023-01-19 | DI.MG.S_ITS ---
BILATERAL DIGITAL SCREENING MAMMOGRAM 3D/2D WITH CAD: 01/19/2023 CLINICAL: Routine screening. Family history of breast cancer. Comparison is made to exams dated: 01/16/2022 mammogram, 11/08/2020 mammogram, 11/06/2018 mammogram, and 10/30/2017 mammogram - [facility]. Both breasts are heterogeneously dense, which may obscure small masses (category c / 51-75% glandular tissue). Current study was also evaluated with a Computer Aided Detection (CAD) system. No significant masses, calcifications, or other findings are seen in either breast. There has been no significant interval change. IMPRESSION: NEGATIVE There is no mammographic evidence of malignancy. A 1 year screening mammogram is recommended. Based on the Tyrer Cuzick model (a risk assessment model) the patient's lifetime risk is 15.6% and her 10 year risk is 6.9%. According to the ACR, ACS, and NCCN guidelines, an annual breast MRI exam along with mammogram is recommended if the patient's lifetime risk is 20% or greater. This exam was interpreted at Station ID: [id number]. NOTE: For mammograms, a report in lay terms will be sent to the patient. Approximately 15% of breast malignancies will not be visualized mammographically. In the management of a palpable breast mass, a negative mammogram must not discourage biopsy of a clinically suspicious lesion. Electronically Signed By: Angelito mcnair/raoul:01/19/2023 10:05:25 letter sent: Normal Exam ACR BI-RADS Category 1: Negative [id number]
== END ==
PROVIDERS: PCP Family Medicine; Referring Provider Family Medicine; Visit Provider Family Medicine
DX: Z12.31 Encounter for screening mammogram for malignant neoplasm of breast (principal); Z80.3 Family history of malignant neoplasm of breast
CPT/HCPCS: 77063; 77067

== ENCOUNTER → 2023-04-11 08:35 | Outpatient (CLI) | payer OTHER, SELFPAY ==
[2023-04-11 09:24] LABS: Add Manual Diff / Slide Review NO; Basophils Absolute Auto 0 /uL (0-100); Basophils Percent Auto 0.8 % (0-2); Eosinophils Absolute Auto 100 /uL (0-450); Hematocrit 37.4 % (36-46); Hemoglobin 12.5 g/dL (12.0-16.0); Lymphocytes Absolute Auto 1500 /uL (1100-4500); Lymphocytes Percent Auto 28.7 % (25-40); Mean Corpuscular HGB Conc 33.6 % (30-36); Mean Corpuscular Hemoglobin 29.4 PG (26-34); Mean Corpuscular Volume 87.5 fL (80-100); Monocytes Absolute Auto 400 /uL (0-900); Monocytes Percent Auto 8.1 % (3-14); Neutrophils Absolute Auto 3200 /uL (1500-7000); Neutrophils Percent Auto 60.4 % (50-75); Platelet Count 251 X10^3/uL (150-400); Red Blood Cell Count 4.27 X10^6/uL (4.0-5.2); Red Cell Distribution Width 12.4 % (11.6-14.8); White Blood Cell Count 5.2 X10^3/uL (4.5-11.0)
[2023-04-11 09:26] LABS: Alanine Aminotransferase 17 IU/L (<35); Albumin 4.2 g/dL (3.5-5.0); Albumin Globulin Ratio 1.4 (1.0-2.8); Alkaline Phosphatase 44 U/L (38-126); Aspartate Aminotransferase 28 IU/L (14-36); BUN Creatinine Ratio 19.4 (6-22); Bilirubin Total 0.9 mg/dL (0.2-1.3); Blood Urea Nitrogen 13 mg/dL (7-17); Calcium 9.6 mg/dL (8.4-10.2); Carbon Dioxide 29 mmol/L (22-32); Chloride 100 mmol/L (98-107); Cholesterol 227 mg/dL (140-199); Estimated Glomerular Filt Rate > 60 mL/min (>60); Globulin 3.1 g/dL (1.7-4.1); Glucose 101 mg/dL (80-110); HDL Cholesterol 74 mg/dL (40-60); HEMOLYSIS < 15 (0-50); LDL Cholesterol Calculated 133 mg/dL (<100); Potassium 4.5 mmol/L (3.4-5.1); Sodium 137 mmol/L (137-145); Total Protein 7.3 g/dL (6.3-8.2); Triglycerides 102 mg/dL (35-150)
[2023-04-11 09:43] LABS: Vitamin D 25 Hydroxy (D3) 34.6 ng/mL (30.0-100.0)
[2023-04-11 09:59] LABS: Thyroid Stimulating Hormone 0.981 uIU/mL (0.47-4.68)
== END ==
PROVIDERS: PCP Family Medicine; Referring Provider Family Medicine; Visit Provider Family Medicine
DX: Z00.00 Encounter for general adult medical examination without abnormal findings (principal); E55.9 Vitamin D deficiency, unspecified; E78.5 Hyperlipidemia, unspecified; D64.9 Anemia, unspecified
CPT/HCPCS: 36415; 80053; 80061; 82306; 84443; 85025

== ENCOUNTER → 2023-05-13 14:19 | Outpatient (CLI) | payer OTHER, SELFPAY ==
[2023-05-13 15:10] LABS: Influenza A - CEPHEID Flu A POSITIVE (NEGATIVE); Influenza B - CEPHEID Flu B NEGATIVE (NEGATIVE); Respiratory Syncytial Virus Negative (Negative)
[2023-05-13 15:25] LABS: COVID-19 CEPHEID 4-PLEX PCR Negative (Negative)
== END ==
PROVIDERS: PCP Family Medicine; Visit Provider Physician Assistant Surgical
DX: R05.1 Acute cough (principal)
CPT/HCPCS: 0241U

== ENCOUNTER → 2023-05-13 14:44 | Outpatient (CLI) | payer OTHER, SELFPAY ==
--- NOTE | 2023-05-13 14:48 | DI.RAD.S_ITS ---
PROCEDURE: XR CHEST 2V INDICATIONS: Dyspnea, cough TECHNIQUE: 2 views of the chest were acquired. COMPARISON: [facility], , XR CHEST 1V, 09/20/2017, 13:40. [facility], , CHEST 2 VIEW, 01/03/2007, 15:42. FINDINGS: Surgical changes and devices: None. Lungs and pleura: Lungs are clear. No pleural effusions or pneumothorax. Mediastinum: Mediastinal contours are normal. Heart size is normal. Bones and chest wall: No suspicious bony abnormalities. Soft tissues appear unremarkable. IMPRESSION: No acute cardiopulmonary abnormality is seen. Dictated by: Marcus Gann M.D. on 05/13/2023 at 15:38 Approved by: Marcus Gann M.D. on 05/13/2023 at 15:39
== END ==
LOC: RAD 14:48
PROVIDERS: PCP Family Medicine; Referring Provider Physician Assistant Surgical; Visit Provider Physician Assistant Surgical
DX: R06.00 Dyspnea, unspecified (principal); R05.1 Acute cough
CPT/HCPCS: 0241U; 71046

== ENCOUNTER → 2023-10-18 14:35 | Outpatient (CLI) | payer OTHER, SELFPAY ==
[2023-10-18 15:34] LABS: BUN Creatinine Ratio 19.5 (6-22); Blood Urea Nitrogen 16 mg/dL (7-17); Calcium 9.3 mg/dL (8.4-10.2); Carbon Dioxide 30 mmol/L (22-32); Chloride 104 mmol/L (98-107); Estimated Glomerular Filt Rate > 60 mL/min (>60); Glucose 102 mg/dL (80-110); HEMOLYSIS < 15 (0-50); Potassium 4.6 mmol/L (3.4-5.1); Sodium 139 mmol/L (137-145)
== END ==
PROVIDERS: PCP Family Medicine; Referring Provider Family Medicine; Visit Provider Family Medicine
DX: M81.8 Other osteoporosis without current pathological fracture (principal); Z01.812 Encounter for preprocedural laboratory examination
CPT/HCPCS: 36415; 80048

== ENCOUNTER → 2024-01-27 17:13 | Outpatient (CLI) | payer OTHER, SELFPAY | PROVIDERS: PCP Family Medicine; Visit Provider Nurse Practitioner Family | DX: R30.0 Dysuria (principal); N30.01 Acute cystitis with hematuria | CPT/HCPCS: 87077; 87086; 87186 ==

== ENCOUNTER → 2024-02-03 12:13 | Outpatient (CLI) | payer OTHER, SELFPAY | PROVIDERS: PCP Family Medicine; Visit Provider Physician Assistant Medical | DX: R30.0 Dysuria (principal); R39.15 Urgency of urination; R35.0 Frequency of micturition; R10.2 Pelvic and perineal pain | CPT/HCPCS: 87086 ==

== ENCOUNTER → 2024-02-11 16:40 | Outpatient (CLI) | payer OTHER, SELFPAY | PROVIDERS: PCP Family Medicine; Visit Provider Family Medicine | DX: R30.0 Dysuria (principal); K62.5 Hemorrhage of anus and rectum; R10.2 Pelvic and perineal pain; R35.0 Frequency of micturition | CPT/HCPCS: 87086; 87210 ==

== ENCOUNTER → 2024-02-14 08:26 | Outpatient (CLI) | payer OTHER, SELFPAY ==
--- NOTE | 2024-02-14 08:29 | DI.CT.S_ITS ---
PROCEDURE: CT ABDOMEN PELVIS W CON INDICATIONS: Pelvic pain, Dysuria TECHNIQUE: After the administration of intravenous contrast, axial sections acquired from the lung bases to the pubic symphysis. Coronal and sagittal reformats were performed. For radiation dose reduction, the following was used: automated exposure control, adjustment of mA and/or kV according to patient size. COMPARISON: [facility], CT, CT KIDNEY URETER BLADDER (KUB), 07/18/2020, 17:05. FINDINGS: Image quality: Diagnostic. Lower Chest: Lung bases are clear. Small hiatal hernia. Heart size is normal. ABDOMEN: Liver: No solid mass. There is diffuse hypoattenuation of the liver parenchyma relative to the spleen compatible with hepatic steatosis. Gallbladder: No radiopaque gallstones or wall thickening. Biliary ducts: No biliary dilation. Pancreas: No ductal dilation. No peripancreatic inflammation. Spleen: Size is within normal limits. Adrenal Glands: No adrenal nodules. Kidneys and Ureters: No hydronephrosis. No solid mass. No complex renal cystic lesion which requires follow up. No perinephric stranding. Bilateral ureters are normal in course and caliber. Stomach and Bowel: Normal colonic caliber, without significant wall thickening. Normal appendix. No evidence for small bowel obstruction or associated inflammatory changes. Peritoneum: No abnormal intraperitoneal fluid. No free air. Ventral Wall: No significant ventral hernia. Abdominal Nodes: No retroperitoneal or mesenteric adenopathy by size criteria. Vessels: Aorta and inferior vena cava are normal in size. PELVIS: Pelvic Organs: Visualized reproductive organs appear unremarkable. Bladder: No bladder wall thickening, accounting for underdistention. Pelvic Nodes: No enlarged lymph nodes. Miscellaneous: No inguinal hernias are seen. Bones: No aggressive osseous abnormality. Visualized osseous structures appear intact without acute fracture or focal destructive lesion. No acute compression fractures of the imaged spine. IMPRESSION: CT abdomen and pelvis without acute abnormalities. Small hiatal hernia. Hepatic steatosis. Unremarkable appearance of the reproductive organs. Other non acute and chronic findings as above. Dictated by: Vaughn Ernandez M.D. on 02/14/2024 at 14:02 Approved by: Vaughn Ernandez M.D. on 02/14/2024 at 14:09
--- NOTE | 2024-02-14 08:29 | DI.MG.S_ITS ---
BILATERAL DIGITAL SCREENING MAMMOGRAM 3D/2D WITH CAD: 02/14/2024 CLINICAL: Routine screening. Family history of breast cancer. Comparison is made to exams dated: 01/16/2022 mammogram, 11/08/2020 mammogram, and 11/06/2018 mammogram - [facility]. The breasts are heterogeneously dense, which may obscure small masses (category c / 51-75% glandular tissue). Current study was also evaluated with a Computer Aided Detection (CAD) system. No significant masses, calcifications, or other findings are seen in either breast. There has been no significant interval change. IMPRESSION: NEGATIVE There is no mammographic evidence of malignancy. A 1 year screening mammogram is recommended. Based on the Tyrer Cuzick model (a risk assessment model) the patient's lifetime risk is 15.2% and her 10 year risk is 6.9%. According to the ACR, ACS, and NCCN guidelines, an annual breast MRI exam along with mammogram is recommended if the patient's lifetime risk is 20% or greater. This exam was interpreted at Station ID: [id number]. NOTE: For mammograms, a report in lay terms will be sent to the patient. Approximately 15% of breast malignancies will not be visualized mammographically. In the management of a palpable breast mass, a negative mammogram must not discourage biopsy of a clinically suspicious lesion. Electronically Signed By: Yoni murillo/raoul:02/14/2024 11:44:45 letter sent: Normal Exam ACR BI-RADS Category 1: Negative
[2024-02-14 09:26] LABS: Estimated Glomerular Filt Rate > 60 mL/min (>60)
[2024-02-14 10:41] LABS: Calcium 9.2 mg/dL (8.4-10.2)
== END ==
LOC: MAMMO 08:28
PROVIDERS: Radiology Diagnostic Radiology; PCP Family Medicine; Referring Provider Family Medicine; Visit Provider Family Medicine
DX: Z12.31 Encounter for screening mammogram for malignant neoplasm of breast (principal); Z80.3 Family history of malignant neoplasm of breast; R92.333 Mammographic heterogeneous density, bilateral breasts; R30.0 Dysuria; R10.2 Pelvic and perineal pain; M81.8 Other osteoporosis without current pathological fracture; K44.9 Diaphragmatic hernia without obstruction or gangrene; K76.0 Fatty (change of) liver, not elsewhere classified
CPT/HCPCS: 36415; 74177; 77063; 77067; 82310; 82565; Q9967

== ENCOUNTER → 2024-03-12 14:35 | Outpatient (CLI) | payer OTHER, SELFPAY ==
--- NOTE | 2024-03-12 14:36 | DI.RAD.S_ITS ---
PROCEDURE: XR CERVICAL SPINE 2V OR 3V INDICATIONS: Radiculopathy TECHNIQUE: 3 view(s) of the cervical spine were acquired. COMPARISON: [facility], CR, XR CLAVICLE RT, 08/24/2019, 16:14. FINDINGS: Diffuse osseous demineralization. Seven cervical vertebrae are identified. The vertebral body heights are preserved. Pseudoarthrosis of the C6 and C7 vertebral bodies. Multilevel intervertebral disc height loss, severe at C5-C6. Multilevel facet and uncinate arthropathy. Straightening of the cervical lordosis. No prevertebral soft tissue edema. The C1 and C2 lateral masses are in symmetric alignment with the dens on the odontoid view. IMPRESSION: Multilevel cervical osteoarthrosis, most conspicuous at C5-C6. Dictated by: Quang Wilson M.D. on 03/13/2024 at 16:38 Approved by: Quang Wilson M.D. on 03/13/2024 at 16:39
--- NOTE | 2024-03-12 14:36 | DI.RAD.S_ITS ---
PROCEDURE: XR THORACIC SPINE 3V INDICATIONS: Radiculopathy TECHNIQUE: 3 views of the thoracic spine were acquired. COMPARISON: None. FINDINGS: Bones: No fractures or dislocations. No suspicious bony lesions. 12 pairs of ribs are noted, and appear intact where visualized. Minimal levocurvature of the thoracic spine with the apex at T8. Soft tissues: No paravertebral stripe thickening. IMPRESSION: No acute bony abnormality. Dictated by: Quang Wilson M.D. on 03/13/2024 at 16:37 Approved by: Quang Wilson M.D. on 03/13/2024 at 16:38
== END ==
LOC: RAD 14:36
PROVIDERS: PCP Family Medicine; Referring Provider Family Medicine; Visit Provider Family Medicine
DX: M54.10 Radiculopathy, site unspecified (principal); M47.812 Spondylosis without myelopathy or radiculopathy, cervical region
CPT/HCPCS: 72040; 72072

== ENCOUNTER → 2024-03-16 06:56 | Outpatient (CLI) | payer OTHER, SELFPAY ==
[2024-03-16 07:35] LABS: Add Manual Diff / Slide Review NO; Basophils Absolute Auto 0 /uL (0-100); Eosinophils Absolute Auto 100 /uL (0-450); Eosinophils Percent Auto 3.3 % (2-4); Hematocrit 39.8 % (36-46); Hemoglobin 13.1 g/dL (12.0-16.0); Lymphocytes Absolute Auto 1400 /uL (1100-4500); Lymphocytes Percent Auto 29.9 % (25-40); Mean Corpuscular HGB Conc 32.9 % (30-36); Mean Corpuscular Hemoglobin 29.5 PG (26-34); Mean Corpuscular Volume 89.6 fL (80-100); Monocytes Absolute Auto 300 /uL (0-900); Monocytes Percent Auto 7.5 % (3-14); Neutrophils Absolute Auto 2600 /uL (1500-7000); Neutrophils Percent Auto 58.3 % (50-75); Platelet Count 269 X10^3/uL (150-400); Red Blood Cell Count 4.44 X10^6/uL (4.0-5.2); Red Cell Distribution Width 12.6 % (11.6-14.8); White Blood Cell Count 4.5 X10^3/uL (4.5-11.0)
[2024-03-16 08:13] LABS: HEMOLYSIS < 15 (0-50); Iron 111 ug/dL (37-170)
[2024-03-16 08:20] LABS: Alanine Aminotransferase 17 IU/L (<35); Albumin 4.4 g/dL (3.5-5.0); Albumin Globulin Ratio 1.6 (1.0-2.8); Alkaline Phosphatase 49 U/L (38-126); Aspartate Aminotransferase 27 IU/L (14-36); BUN Creatinine Ratio 18.2 (6-22); Bilirubin Total 0.8 mg/dL (0.2-1.3); Blood Urea Nitrogen 14 mg/dL (7-17); Calcium 9.6 mg/dL (8.4-10.2); Carbon Dioxide 29 mmol/L (22-32); Chloride 104 mmol/L (98-107); Cholesterol 219 mg/dL (140-199); Estimated Glomerular Filt Rate > 60 mL/min (>60); Globulin 2.7 g/dL (1.7-4.1); Glucose 108 mg/dL (80-110); HDL Cholesterol 84 mg/dL (40-60); HEMOLYSIS < 15 (0-50); LDL Cholesterol Calculated 116 mg/dL (<100); Potassium 4.4 mmol/L (3.4-5.1); Sodium 139 mmol/L (137-145); Total Protein 7.1 g/dL (6.3-8.2); Triglycerides 93 mg/dL (35-150)
[2024-03-16 08:24] LABS: Percent Iron Saturation 44 % (15-50); Total Iron Binding Capacity 254 ug/dL (265-497); Transferrin 239 mg/dL (206-381)
[2024-03-16 08:50] LABS: Ferritin 86 ng/mL (11-264)
[2024-03-17 01:37] LABS: HBsAg Screen Negative (Negative); Hepatitis A Antibody IgM Negative (Negative); Hepatitis B Core Antibody IgM Negative (Negative); Hepatitis C Antibody Non Reactive (Non Reactive)
== END ==
LOC: LAB 06:56
PROVIDERS: PCP Family Medicine; Referring Provider Family Medicine; Visit Provider Family Medicine
DX: K76.9 Liver disease, unspecified (principal); R53.83 Other fatigue; Z80.51 Family history of malignant neoplasm of kidney
CPT/HCPCS: 36415; 80053; 80061; 80074; 82728; 83540; 83550; 85025

== ENCOUNTER → 2024-04-08 14:18 | Outpatient (CLI) | payer OTHER, SELFPAY | LOC: CAR 14:18 | PROVIDERS: PCP Family Medicine; Referring Provider Family Medicine; Visit Provider Family Medicine | DX: I49.9 Cardiac arrhythmia, unspecified (principal) | CPT/HCPCS: 93246 ==

== ENCOUNTER → 2024-04-13 09:09 | Outpatient (CLI) | payer OTHER, SELFPAY ==
--- NOTE | 2024-04-13 09:10 | DI.ECHO.S_ITS ---
[facility] : : [id number] : : [place] : : [id number] : : Phone: [phone] Echocardiogram Report + + :Name: HECTOR BACH Study Date: 04/13/2024 Height: 67 in : :[facility] ReadingLocation: Weight: 140 lb : : Gender: Female BSA: 1.7 m2 : :: 1960 Age: 63 yrs BP: 138/84 mmHg: :Reason For Study: ARRHYTHMIA : :Ordering Physician: KAYLA, : :VAIBHAV Beltran Performed By: Keanu Espitia : :Referring: VAIBHAV GARZA : + + Interpretation Summary 1) Normal left ventricular thickness, size, wall motion, and systolic function (EF 55-60%). 2) Normal right ventricular size and function. 3) There is mild mitral regurgitation. 4) Compared to the Echo done 05/14/2012, no significant change. Procedure: A two-dimensional transthoracic echocardiogram with color flow and Doppler was performed. The study quality was technically good. Comparison is made with the echocardiogram of 05/14/2012. The patient was in normal sinus rhythm during the exam. Left Ventricle: The left ventricle is normal in size. There is normal left ventricular wall thickness. There is no ventricular septal defect visualized. The ejection fraction is estimated to be 55-60%. There are no focal wall motion abnormalities. Diastolic parameters suggest probable normal left ventricular diastolic function and normal filling pressures. Right Ventricle: The right ventricle is normal in size and function. Atria: The left atrial size is normal. Right atrial size is normal. There is no Doppler evidence for an atrial septal defect. Mitral Valve: The mitral valve is normal in structure and function. There is mild mitral regurgitation. Aortic Valve: The aortic valve is trileaflet. The aortic valve opens well. There is no aortic valve stenosis. No aortic regurgitation is present. Tricuspid Valve: The tricuspid valve leaflets are thin and pliable. There is trace tricuspid regurgitation. The right ventricular systolic pressure is estimated to be at least 31 mmHg based on an estimated right atrial pressure of 3 mm Hg. Pulmonic Valve: The pulmonic valve is not well seen, but is grossly normal. There is no pulmonic valvular regurgitation. Great Vessels: The aortic root is normal size. The dimensions of the ascending aorta are normal. The pulmonary artery branches are not well visualized. The IVC is of normal diameter and collapses greater than 50% with a sniff. This suggests a low right atrial pressure of 3 mm Hg. Pericardium/ Pleura There is no pericardial effusion. There is no pleural effusion. MMode/2D Measurements & Calculations LVIDd: 4.8 cm LVOT diam: 1.9 cm LVIDs: 3.1 cm Ao root diam: 3.4 cm FS: 34.5 % Ao Arch Diam (Prox Trans): 2.3 cm EPSS: 0.39 cm IVSd: 0.66 cm LVPWd: 0.59 cm LV encinas. diameter/BSA (cm/m^2): 2.8 LV sys. diameter/BSA (cm/m^2): 1.8 LA A2 area: 11.2 cm2 RA long axis: 4.0 cm LA A4 area: 11.3 cm2 RA area: 11.2 cm2 LA length (vol): 4.3 cm RA vol: 26.6 ml LA vol: 24.9 ml RA : 15.3 ml/m2 LA vol index: 14.3 ml/m2 IVC diam: 1.6 cm RVD1 (basal): 3.6 cm RVD2 (mid): 2.9 cm TAPSE: 2.6 cm Doppler Measurements & Calculations Ao V2 max: 133.3 cm/sec LVOT Max Maximiliano: 110.0 cm/sec Ao V2 mean: 92.4 cm/sec LV V1 max P.8 mmHg Ao max P.1 mmHg LV V1 VTI: 25.2 cm Ao mean P.7 mmHg LUISITO(I,D): 2.1 cm2 Ao V2 VTI: 32.4 cm LUISITO(V,D): 2.3 cm2 sev ratio: 0.78 LUISITO indexed to BSA (cm^2/m^2): 1.2 MV E max maximiliano: 69.3 cm/sec TR max maximiliano: 264.9 cm/sec MV A max maximiliano: 48.6 cm/sec TR max P.1 mmHg MV E/A: 1.4 PA V2 max: 57.8 cm/sec Med Peak E' Maximiliano: 8.3 cm/sec PA V2 mean: 41.9 cm/sec E/E' med: 8.3 PA mean P.77 mmHg Lat Peak E' Maximiliano: 8.4 cm/sec PA pr(Accel): 7.1 mmHg E/E' lat: 8.2 E/e' average: 8.3 MV dec time: 0.22 sec SVLVOT): 68.9 ml Reading Physician:12:30 PM
== END ==
PROVIDERS: PCP Family Medicine; Referring Provider Family Medicine; Visit Provider Family Medicine
DX: I34.0 Nonrheumatic mitral (valve) insufficiency (principal); I49.9 Cardiac arrhythmia, unspecified
CPT/HCPCS: 93306

== ENCOUNTER → 2024-04-23 18:39 | Outpatient (CLI) | payer OTHER, SELFPAY ==
--- NOTE | 2024-04-23 18:48 | DI.MRI.S_ITS ---
PROCEDURE: MR THORACIC SPINE WO CON INDICATIONS: back pain/neck pain TECHNIQUE: Noncontrast sagittal T1 spine echo and T2 fast spin echo, sagittal STIR, and T2 fast spin echo through the thoracic spine. COMPARISON: None. FINDINGS: Image quality: Excellent. Alignment and Curvature: There is normal bony alignment. Bone Marrow: Lesion in the T8 vertebral body which demonstrates T1 hypointense signal and T2/stir hyperintense signal Marrow is of normal overall signal. No acute vertebral body compression fractures. Spinal Cord: Visualized spinal cord is normal in size and signal. Paraspinous Soft Tissues: No paravertebral masses. Miscellaneous: Mild degenerative changes with disc desiccation and height loss and small disc bulges at several levels. On axial images, central canal and foramina appear widely patent at all scanned levels. IMPRESSION: Mild degenerative changes without significant central canal or neural foraminal stenosis. Indeterminate lesion within the T8 vertebral body as described above, likely an atypical hemangioma. Metastatic disease is felt to be less likely in the absence of a primary malignancy. Dictated by: Marcus Gann M.D. on 04/23/2024 at 19:42 Approved by: Marcus Gann M.D. on 04/23/2024 at 19:45
== END ==
PROVIDERS: PCP Family Medicine; Referring Provider Family Medicine; Visit Provider Family Medicine
DX: M54.2 Cervicalgia (principal); M54.9 Dorsalgia, unspecified; M47.814 Spondylosis without myelopathy or radiculopathy, thoracic region; M89.9 Disorder of bone, unspecified
CPT/HCPCS: 72146